=== PATIENT | female | born 2000 | race Two or more races ===

== ENCOUNTER 2019-01-08 13:12 | Inpatient (IN) ==
[2019-01-08 13:45] LABS: Basophils % 0.4 % (0.0-0.8); Eosinophils # 0.1 10*3/uL (0.0-0.87); Eosinophils % 1.1 % (0.00-10.9); Hematocrit 35.3 VOL% (35.7-47.0); Hemoglobin 11.8 GM/DL (12.0-16.0); Immature Granulocytes % 1.2 %; Immature Granulocytes Absolute 0.12 #; Lymphocytes # 2.5 10*3/uL (1.4-4.0); Lymphocytes % 25.1 % (21.3-54.2); Mean Corpuscular HGB Conc 33.4 GM/DL (32-36); Mean Corpuscular Volume 85.1 FL (87-102); Mean Platelet Volume 12.2 FL (9.6-12.0); Neutrophils % 65.2 % (38.7-73.9); Platelet Count 151 T/CUMM (130-400); Red Blood Count 4.15 MC/CUMM (3.8-5.5); Red Cell Distribution Width 13.1 % (9.3-17.3); White Blood Count 9.8 T/CUMM (4-12)
[2019-01-08] MEDS ORDERED: LABETALOL 100 MG/20 ML VIAL IV PRN (13:45)
[2019-01-08] MEDS ORDERED: LABETALOL 20 MG/4 ML SYRINGE IV PRN (13:45)
[2019-01-08] MEDS ORDERED: MAGNESIUM SULF RIDER 4 GM in PREMIX 1 EACH IV ONE (13:45)
[2019-01-08 13:55] LABS: Apearance,Urine CLOUDY (Clear); Bilirubin,Urine Negative (Negative); Blood, Urine Small mg/dL (Negative); Glucose,Urine (UA) Negative (Negative); Granular Casts,Urine 7 /LPF (0-1); Ketones,Urine 5 mg/dL (Negative); Mucus,Urine Many /LPF (Occasional); Nitrite,Urine Negative (Negative); Protein,Urine >=500 MG/DL; RBC,Urine 35 /HPF (0-4); Squamous Epithelial Cell,Urine Occasional /HPF (0-10); Urine Color Dark yellow (Yellow); Urine Specific Gravity 1.033 (1.001-1.035); Urine Urobilinogen < 2.0 EU/DL (0.2-1.0); WBC,Urine 4 /HPF (0-6)
[2019-01-08 13:57] LABS: INR 0.9; PT Patient Result 9.4 SECS; Partial Thromboplastin Time < 21.0 SECS (0-40)
[2019-01-08 14:00] LABS: Barbiturates Screen,Urine Negative (Negative); Benzodiazepines Screen,Urine Negative (Negative); Cannabinoid Screen,Urine Negative (Negative); Opiate Screen,Urine Negative (Negative); Phencyclidine Screen,Urine Negative (Negative)
[2019-01-08] MEDS ORDERED: MAGNESIUM SULF DRIP 40 GM/1,000 ML ML IV SCH (14:00)
[2019-01-08] MEDS: LACTATED RINGERS 1,000 ML IV SCH (14:19)
[2019-01-08 14:20] LABS: Alanine Aminotransferase 24 U/L (13-56); Albumin 2.3 G/DL (3.4-5.0); Alkaline Phosphatase 165 U/L (45-117); Aspartate Amino Transferase 30 U/L (0-37); Bilirubin,Total < 0.39 MG/DL (0.2-1.0); Blood Urea Nitrogen 9 MG/DL (7-18); Calcium 8.3 MG/DL (8.5-10.1); Glucose 82 MG/DL (74-106); Osmolality,Calculated 274.5 MOS/KG (273-304); Total Protein 6.5 G/DL (6.4-8.3)
[2019-01-08 15:22] LABS: Bilirubin,Direct < 0.100 MG/DL (0.0-0.20); Uric Acid 7.4 MG/DL (2.6-6.0)
[2019-01-08] MEDS ORDERED: ONDANSETRON 4 MG/2 ML VIAL IV PRN (16:17)
[2019-01-08 16:30] LABS: HIV Antigen/Antibody Result Nonreactive (Nonreactive); Hepatitis B Surface Ag Quant 0.96 Index; Hepatitis B Surface Ag Result Negative (Negative)
[2019-01-08] MEDS ORDERED: LABETALOL 100 MG/20 ML VIAL IV ONE (16:37)
[2019-01-08] MEDS: BETAMETH SODIUM PHOS/ACETATE 30 MG/5 ML VIAL IM SCH (18:15)
[2019-01-09] MEDS: LACTATED RINGERS 1,000 ML IV SCH (03:23)
[2019-01-09] MEDS ORDERED: ACETAMINOPHEN 325 MG TABLET PO PRN (03:41)
[2019-01-09] MEDS ORDERED: CITRIC ACID/SODIUM CITRATE 30 ML UDCUP PO ONE (07:57)
[2019-01-09] MEDS ORDERED: ePHEDrine 50 MG/ML AMP IV PRN (07:57)
[2019-01-09] MEDS ORDERED: ONDANSETRON 4 MG/2 ML VIAL IV ONE (07:57)
[2019-01-09] MEDS ORDERED: FAMOTIDINE 20 MG/2 ML VIAL IV ONE (07:57)
[2019-01-09] MEDS ORDERED: hydrOXYzine HCL 25 MG/1 ML VIAL IM PRN (07:57)
[2019-01-09] MEDS ORDERED: NALOXONE 0.4 MG/ML VIAL IV PRN (07:57)
[2019-01-09] MEDS ORDERED: diphenhydrAMINE 50 MG/1 ML VIAL IV PRN ×2 (07:57)
[2019-01-09] MEDS ORDERED: PROMETHAZINE 25 MG/1 ML VIAL IM ONE (07:57)
[2019-01-09] MEDS ORDERED: fentaNYL 2 MCG/ROPIV 0.2% EPID 100 ML EPIDURAL SCH (08:00)
[2019-01-09 10:32] LABS: Basophils % 0.2 % (0.0-0.8); Hematocrit 32.4 VOL% (35.7-47.0); Hemoglobin 10.8 GM/DL (12.0-16.0); Immature Granulocytes % 0.6 %; Immature Granulocytes Absolute 0.06 #; Lymphocytes % 20.8 % (21.3-54.2); Mean Corpuscular HGB Conc 33.3 GM/DL (32-36); Mean Corpuscular Volume 86.6 FL (87-102); Mean Platelet Volume 11.6 FL (9.6-12.0); Monocytes % 5.9 % (1.7-12.7); Neutrophils % 72.5 % (38.7-73.9); Platelet Count 184 T/CUMM (130-400); Red Blood Count 3.74 MC/CUMM (3.8-5.5); Red Cell Distribution Width 13.4 % (9.3-17.3); White Blood Count 9.4 T/CUMM (4-12)
[2019-01-09 10:48] LABS: INR 0.8; PT Patient Result 8.9 SECS; Partial Thromboplastin Time 24.7 SECS (0-40)
[2019-01-09 10:55] LABS: Bilirubin,Direct < 0.100 MG/DL (0.0-0.20); Bilirubin,Total < 0.39 MG/DL (0.2-1.0)
[2019-01-09 11:41] LABS: Alanine Aminotransferase 20 U/L (13-56); Albumin 2.1 G/DL (3.4-5.0); Alkaline Phosphatase 150 U/L (45-117); Aspartate Amino Transferase 26 U/L (0-37); Bilirubin,Total < 0.39 MG/DL (0.2-1.0); Blood Urea Nitrogen 11 MG/DL (7-18); Calcium 6.6 MG/DL (8.5-10.1); Glucose 114 MG/DL (74-106); Osmolality,Calculated 267.2 MOS/KG (273-304); Total Protein 6.2 G/DL (6.4-8.3); Uric Acid 8.8 MG/DL (2.6-6.0)
[2019-01-09] MEDS: LABETALOL 200 MG TABLET PO SCH ×2 (14:01→21:33)
[2019-01-09] MEDS: BETAMETH SODIUM PHOS/ACETATE 30 MG/5 ML VIAL IM SCH (18:25)
[2019-01-10] MEDS: LACTATED RINGERS 1,000 ML IV SCH (03:45)
[2019-01-10] MEDS ORDERED: AMPICILLIN INJ 2,000 MG in SODIUM CHLORIDE 0.9% 100 ML IV ONE (03:47)
[2019-01-10] MEDS ORDERED: OXYTOCIN/LR 20 UNIT/1,000 ML BAG IV SCH (04:00)
[2019-01-10] MEDS ORDERED: MAGNESIUM SULF RIDER 100 ML IV ONE (07:32)
[2019-01-10] MEDS ORDERED: LABETALOL 100 MG/20 ML VIAL IV ONE ×3 (07:33)
[2019-01-10] MEDS: MAGNESIUM SULF DRIP 40 GM/1,000 ML ML IV SCH (08:13)
[2019-01-10] MEDS ORDERED: ONDANSETRON 4 MG/2 ML VIAL IV ONE (08:58)
[2019-01-10] MEDS ORDERED: FAMOTIDINE 20 MG/2 ML VIAL IV ONE (08:58)
[2019-01-10] MEDS ORDERED: CITRIC ACID/SODIUM CITRATE 30 ML UDCUP PO ONE (08:58)
[2019-01-10] MEDS ORDERED: PROMETHAZINE 25 MG/1 ML VIAL IM ONE (08:58)
[2019-01-10] MEDS ORDERED: ePHEDrine 50 MG/ML AMP IV PRN (08:58)
[2019-01-10] MEDS ORDERED: hydrOXYzine HCL 25 MG/1 ML VIAL IM PRN (08:58)
[2019-01-10] MEDS ORDERED: NALOXONE 0.4 MG/ML VIAL IV PRN (08:58)
[2019-01-10] MEDS ORDERED: diphenhydrAMINE 50 MG/1 ML VIAL IV PRN ×2 (08:58)
[2019-01-10] MEDS ORDERED: fentaNYL 2 MCG/ROPIV 0.2% EPID 100 ML EPIDURAL SCH (09:00)
[2019-01-10] MEDS ORDERED: miSOPROStol 200 MCG TABLET ONE ×2 (11:23→11:25)
[2019-01-10] MEDS ORDERED: BUTORPHANOL 2 MG/ML VIAL ONE (11:23)
[2019-01-10] MEDS ORDERED: HYDROCORTISONE 2.5% RECTAL CREAM 30 GM TUBE TOP PRN (11:58)
[2019-01-10] MEDS ORDERED: OXYTOCIN/LR 20 UNIT/1,000 ML BAG IV ONE (11:58)
[2019-01-10] MEDS ORDERED: DIPH/TET/ACEL PERT BOOSTER VACCINE 0.5 ML VIAL IM ONE (11:58)
[2019-01-10] MEDS ORDERED: ONDANSETRON 4 MG/2 ML VIAL IV PRN (11:58)
[2019-01-10] MEDS ORDERED: WITCH HAZEL PADS 100/JAR TOP PRN (11:58)
[2019-01-10] MEDS ORDERED: oxyCODONE/ACETAMINOPHEN 5-325 MG TABLET PO PRN ×2 (11:58)
[2019-01-10] MEDS ORDERED: BENZOCAINE 20%/MENTHOL 0.5% SPRAY 56 GM CAN TOP PRN (11:58)
[2019-01-10] MEDS ORDERED: IBUPROFEN 800 MG TABLET PO PRN (11:58)
[2019-01-10] MEDS ORDERED: ACETAMINOPHEN 325 MG TABLET PO PRN (11:58)
[2019-01-10] MEDS ORDERED: BISACODYL 10 MG SUPP RECTAL PRN (11:58)
[2019-01-10] MEDS ORDERED: LANOLIN 50% CREAM 0.3 OZ TUBE TOP PRN (11:58)
[2019-01-10] MEDS ORDERED: MEASLES/MUMPS/RUBELLA VACCINE 0.5 ML VIAL SUBCUT ONE (11:58)
[2019-01-10] MEDS ORDERED: RHO(D) IMMUNE GLOBULIN 300 MCG SYRINGE IM ONE (11:58)
[2019-01-10] MEDS ORDERED: LABETALOL 200 MG TABLET PO SCH ×3 (12:27→21:00)
[2019-01-11] MEDS ORDERED: LABETALOL 100 MG TABLET ONE ×2 (00:01→00:06)
[2019-01-11] MEDS: LABETALOL 200 MG TABLET PO SCH ×3 (00:19→18:02)
[2019-01-11] MEDS: MAGNESIUM SULF DRIP 40 GM/1,000 ML ML IV SCH (05:52)
[2019-01-11 05:54] LABS: Basophils % 0.2 % (0.0-0.8); Hematocrit 28.9 VOL% (35.7-47.0); Hemoglobin 9.5 GM/DL (12.0-16.0); Immature Granulocytes % 1.3 %; Immature Granulocytes Absolute 0.15 #; Lymphocytes % 17.3 % (21.3-54.2); Mean Corpuscular HGB Conc 32.9 GM/DL (32-36); Mean Corpuscular Volume 88.9 FL (87-102); Mean Platelet Volume 12.2 FL (9.6-12.0); Monocytes % 8.2 % (1.7-12.7); Platelet Count 145 T/CUMM (130-400); Red Blood Count 3.25 MC/CUMM (3.8-5.5); Red Cell Distribution Width 13.6 % (9.3-17.3); White Blood Count 11.6 T/CUMM (4-12)
[2019-01-11] MEDS: LACTATED RINGERS 1,000 ML IV SCH (05:56)
[2019-01-11] MEDS: DOCUSATE SODIUM 100 MG CAPSULE PO SCH ×3 (06:50→22:19)
[2019-01-12] MEDS: LABETALOL 200 MG TABLET PO SCH ×3 (01:30→17:56)
[2019-01-12] MEDS ORDERED: LABETALOL 100 MG TABLET ONE ×2 (01:47→17:53)
[2019-01-12] MEDS: DOCUSATE SODIUM 100 MG CAPSULE PO SCH (21:18)
[2019-01-13] MEDS: LABETALOL 200 MG TABLET PO SCH ×3 (01:55→18:04)
[2019-01-13 07:18] VITALS: BP 122/58
[2019-01-13] MEDS: DOCUSATE SODIUM 100 MG CAPSULE PO SCH (11:01)
== END 2019-01-13 18:05 | disposition home or self-care (01) | DRG 807 ==
LOC: N.ED 13:12 → N.EDINP 13:12 → N.LD 14:47 → N.OB 01-09 13:25 → N.LD 01-10 03:46 → N.OB 01-12 15:45
PROVIDERS: ADMIT Obstetrics & Gynecology; ATTEND Obstetrics & Gynecology